=== PATIENT | female | born 1975 | race Caucasian/White ===

== ENCOUNTER 2016-12-18 14:13 | Outpatient (CLI) | payer OTHER ==
[2016-12-18 19:13] LABS: BASOPHILS % (AUTO) 0.2 %; EOSINOPHILS # (AUTO) 0.2 10^3/uL (0.0-0.7); EOSINOPHILS % (AUTO) 2.7 %; HCT - HEMATOCRIT 41.3 % (37.0-47.0); HGB - HEMOGLOBIN 13.6 g/dL (12.0-16.0); LYMPHOCYTES # (AUTO) 2.3 10^3/uL (1.5-3.5); MEAN CORPUSCULAR HEMOGLOBIN 27.7 pg (27.0-31.0); MEAN CORPUSCULAR VOLUME 84.1 fL (81.0-99.0); MEAN PLATELET VOLUME 7.3 fL (7.9-10.8); MONOCYTES # (AUTO) 0.6 10^3/uL (0.0-1.0); MONOCYTES % (AUTO) 7.3 %; NEUTROPHILS # (AUTO) 4.8 10^3/uL (1.5-6.6); NEUTROPHILS % (AUTO) 60.8 %; RED BLOOD COUNT 4.91 10^6/uL (4.20-5.40); RED CELL DISTRIBUTION WIDTH 13.4 % (12.0-15.0)
[2016-12-18 19:14] LABS: ALBUMIN/GLOBULIN RATIO 1.2 (1.0-2.2); BILIRUBIN,TOTAL 0.7 mg/dL (0.2-1.0); BUN - BLOOD UREA NITROGEN 11 mg/dL (6-20); CALCIUM 9.3 mg/dL (8.5-10.3); CARBON DIOXIDE - CO2 24 mmol/L (21-32); CHLORIDE 107 mmol/L (101-111); CREATININE 0.7 mg/dL (0.4-1.0); GFR - MDRD 93 (>89); GLUCOSE 131 mg/dL (70-100); LIPASE 32 U/L (22-51); POTASSIUM 3.8 mmol/L (3.5-5.0); SODIUM 138 mmol/L (135-145); TOTAL PROTEIN 7.4 g/dL (6.7-8.2)
== END 2016-12-18 14:14 | disposition home or self-care (01) ==
LOC: LAB.WCP 14:13
PROVIDERS: ATTEND Family Medicine
DX: R10.11 Right upper quadrant pain (principal)
CPT/HCPCS: 36415; 80053; 83690; 84703; 85025

== ENCOUNTER 2016-12-19 14:43 | Outpatient (CLI) | payer OTHER ==
--- NOTE | 2016-12-19 20:07 | Ultrasound Report ---
EXAM: ABDOMEN ULTRASOUND LIMITED, RUQ EXAM DATE: 12/19/2016 03:50 PM. CLINICAL HISTORY: Upper quadrant abdominal pain. History of vertical sleeve gastrectomy. COMPARISON: None. TECHNIQUE: Real-time scanning was performed with static images obtained. FINDINGS: Liver: Normal parenchymal echotexture. Main portal vein flow: Hepatopetal. Gallbladder: Contains multiple mobile stones. No wall thickening, pericholecystic free fluid, or sono graphic Hickman's sign. Biliary System: CBD measures 5 mm. No intrahepatic or extrahepatic ductal dilatation. Right Kidney: 11.0 cm in length. Normal parenchymal echotexture. No visualized shadowing stones or hy dronephrosis. IMPRESSION: Cholelithiasis without sonographic evidence of acute cholecystitis. [facility] Referring Provider Line: [phone] SITE ID: [id number]
== END 2016-12-19 14:44 | disposition home or self-care (01) ==
LOC: DI 14:43
PROVIDERS: ATTEND Family Medicine
DX: K80.20 Calculus of gallbladder without cholecystitis without obstruction (principal)
CPT/HCPCS: 76705

== ENCOUNTER → 2017-01-02 | Outpatient (CLI) | payer OTHER | LOC: LAB.R 08:00 | PROVIDERS: ATTEND Surgery | DX: R88.8 Abnormal findings in other body fluids and substances (principal) | CPT/HCPCS: 82270; 83630; 87045; 87046; 87177; 87209; 87493 ==

== ENCOUNTER 2017-03-13 02:00 | Emergency (ER) | payer OTHER ==
--- NOTE | 2017-03-13 02:10 | ED Physician Documentation ---
PD HPI ABD PAIN - Stated complaint Stated Complaint: ABD PX - Chief complaint Chief Complaint: Abd Pain - History obtained from History obtained from: Patient - History of Present Illness Timing - onset: How many months ago (episodic x 6 months, but this episode started few hours ago) Timing - duration: Hours Timing - details: Abrupt onset, Waxing and waning Pain level max: 8 Pain level now: 7 Quality: Pain Location: RUQ, Epigastric Radiation: No: Chest, , Lower back, Left flank, Left shoulder, Right flank, Right shoulder, Upper back Improved by: No: Eating, Laying still, Vomiting, BM, Position, Meds Worsened by: No: Eating, Moving, Breathing, Position, Palpation Associated symptoms: No: Fever, Nausea, Vomiting Similar symptoms before: Diagnosis (biliary colic) Review of Systems Constitutional: denies: Fever Cardiac: reports: Reviewed and negative Respiratory: reports: Reviewed and negative GI: reports: Abdominal Pain. denies: Nausea, Vomiting : denies: Dysuria, Frequency PD PAST MEDICAL HISTORY - Past Medical History Cardiovascular: Murmur, Other Respiratory: Asthma Endocrine/Autoimmune: None GI: GERD, Other : Other HEENT: None, Other Psych: Depression, Anxiety, Bipolar disorder Musculoskeletal: Other Derm: Eczema, Other - Past Surgical History General: Colonoscopy, Other HEENT: Myringotomy (tubes) - Present Medications Home Medications: Ambulatory Orders Medication Instructions Recorded Confirmed Acyclovir 400 mg PO DAILY 02/01/17 03/13/17 Albuterol Sulf [Ventolin Hfa 1 - 2 puffs INH Q4HR PRN 02/01/17 03/13/17 Inhaler] Cholecalciferol (Vitamin D3) 2,000 unit PO DAILY 02/01/17 03/13/17 [Vitamin D] lamoTRIgine [Lamictal Xr] 50 mg PO DAILY 02/01/17 03/13/17 HYDROcod/ACETAM 5/325 [[place] 5/325] 1 - 2 ea PO Q6H PRN #15 tablet 03/13/17 traMADol [Ultram] 50 mg PO PRN PRN 03/13/17 03/13/17 - Allergies Allergies/Adverse Reactions: Allergies Allergy/AdvReac Type Severity Reaction Status Date / Time NSAIDS (Non-Steroidal AdvReac Unknown Verified 03/13/17 02:31 Anti-Inflamma sulfacetamide AdvReac Rash Verified 03/13/17 02:31 [From Sulfamide] PD ED PE NORMAL - Vitals Vital signs reviewed: Yes - General General: Alert and oriented X 3, No acute distress, Well developed/nourished - HEENT HEENT: Moist mucous membranes - Cardiac Cardiac: RRR, No murmur - Respiratory Respiratory: No respiratory distress, Clear bilaterally - Abdomen Abdomen: Soft, Non distended, Other (mild RUQ and epigastric tenderness without rebound or guarding) - Back Back: No CVA TTP - Derm Derm: Normal color, Warm and dry, No rash Results - Vitals Vitals: Vital Signs - 24 hr 03/13/17 03/13/17 02:05 05:45 Temperature 36.5 C Heart Rate 78 66 Respiratory 18 16 Rate Blood Pressure 129/72 122/102 H O2 Saturation 100 100 Oxygen O2 Source Room air - Labs Labs: Laboratory Tests 03/13/17 03/13/17 03/13/17 02:39 02:39 03:40 WBC 10.0 RBC 4.49 Hgb 12.6 Hct 37.0 MCV 82.3 MCH 28.0 MCHC 34.0 RDW 13.6 Plt Count 311 MPV 7.0 L Neut # 5.5 Lymph # 3.2 [place] # 0.9 Eos # 0.3 Baso # 0.1 Absolute Nucleated RBC 0.01 Nucleated RBC % 0.1 Sodium 138 Potassium 3.7 Chloride 106 Carbon Dioxide 22 Anion Gap 10.0 BUN 13 Creatinine 0.7 Estimated GFR (MDRD) 93 Glucose 90 Calcium 9.0 Total Bilirubin 0.4 AST 21 ALT 16 Alkaline Phosphatase 65 Total Protein 7.6 Albumin 4.3 Globulin 3.3 Albumin/Globulin Ratio 1.3 Lipase 24 Urine Color YELLOW Urine Clarity CLEAR Urine pH 6.0 Ur Specific [place] 1.025 Urine Protein NEGATIVE Urine Glucose (UA) NEGATIVE Urine Ketones NEGATIVE Urine Occult Blood SMALL H Urine Nitrite NEGATIVE Urine Bilirubin NEGATIVE Urine Urobilinogen 0.2 (NORMAL) Ur Leukocyte Esterase NEGATIVE Urine RBC 0-5 Urine WBC 0-3 Ur Squamous Epith Cells MOD Squamous H Urine Bacteria Rare Ur Microscopic Review INDICATED Urine Culture Comments NOT INDICATED Urine HCG, Qual NEGATIVE - Rads (name of study) right upper quadrant US Radiology: Prelim report reviewed, See rad report PD MEDICAL DECISION MAKING - ED course Complexity details: reviewed results, re-evaluated patient, considered differential, d/w patient ED course: on reevaluation, after IV dilaudid and tests resulted, patient reports resolution of her pain. Departure - Departure Disposition: Home, Self Care Clinical Impression: Biliary colic Condition: Good Instructions: ED Gallstone W Biliary Colic Follow-Up: Zeferino Urbano MD [Provider Admit Priv/Credential] - (Call Wednesday to arrange for next available appointment) Prescriptions: HYDROcod/ACETAM 5/325 [[place] 5/325] 1 - 2 ea PO Q6H PRN #15 tablet PRN Reason: Pain Forms: Activity restrictions Discharge Date/Time: 03/13/17 05:48
[2017-03-13] MEDS ORDERED: HYDROmorphone 1 MG/ML SYRINGE IVP STA ×2 (02:30→04:24)
[2017-03-13 02:55] LABS: BASOPHILS # (AUTO) 0.1 10^3/uL (0.0-0.1); BASOPHILS % (AUTO) 0.7 %; EOSINOPHILS # (AUTO) 0.3 10^3/uL (0.0-0.7); EOSINOPHILS % (AUTO) 2.8 %; HGB - HEMOGLOBIN 12.6 g/dL (12.0-16.0); LYMPHOCYTES # (AUTO) 3.2 10^3/uL (1.5-3.5); MEAN CORPUSCULAR VOLUME 82.3 fL (81.0-99.0); MONOCYTES # (AUTO) 0.9 10^3/uL (0.0-1.0); MONOCYTES % (AUTO) 9.1 %; NEUTROPHILS # (AUTO) 5.5 10^3/uL (1.5-6.6); NEUTROPHILS % (AUTO) 55.4 %; NUCLEATED RED BLOOD CELLS AUTO 0.1 /100WBC; RED BLOOD COUNT 4.49 10^6/uL (4.20-5.40); RED CELL DISTRIBUTION WIDTH 13.6 % (12.0-15.0)
[2017-03-13 02:59] LABS: ALBUMIN/GLOBULIN RATIO 1.3 (1.0-2.2); BILIRUBIN,TOTAL 0.4 mg/dL (0.2-1.0); CREATININE 0.7 mg/dL (0.4-1.0); POTASSIUM 3.7 mmol/L (3.5-5.0); TOTAL PROTEIN 7.6 g/dL (6.7-8.2)
[2017-03-13 03:56] LABS: BILIRUBIN,URINE NEGATIVE (NEGATIVE)
--- NOTE | 2017-03-13 03:59 | Ultrasound Preliminary Report ---
Exam: US ABDOMEN LIMITED IMPRESSION: 1. Cholelithiasis without wall thickening or pericholecystic free fluid seen. Wheat Inspector does report a positive sonographic Hickman's sign however, increasing suspicion of early cholecystitis in the pro per clinical setting. 2. Fatty liver. [facility] SITE ID: [id number]
--- NOTE | 2017-03-13 04:04 | Ultrasound Report ---
EXAM: ABDOMEN ULTRASOUND LIMITED, RUQ EXAM DATE: 03/13/2017 03:50 AM. CLINICAL HISTORY: Abdominal pain. COMPARISON: 12/19/2016. TECHNIQUE: Real-time scanning was performed with static images obtained. FINDINGS: Liver: Echogenic without gross focal abnormality seen. Main portal vein flow: Hepatopetal. Gallbladder: Multiple small gallstones without wall thickening but with reported tenderness. No payam cholecystic free fluid seen. Biliary System: CBD measures 5 mm. No intrahepatic or extrahepatic ductal dilatation. Other: Visualized portions of the pancreas and right kidney are unremarkable. IMPRESSION: 1. Cholelithiasis without wall thickening or pericholecystic free fluid seen. Livestock Haulier does report a positive sonographic Hickman's sign however, increasing suspicion of early cholecystitis in the pro per clinical setting. 2. Fatty liver. [facility] Referring Provider Line: [phone] SITE ID: [id number]
[2017-03-13 04:05] LABS: HCG UR QUAL NEGATIVE; UA w/ MICROSCOPIC CHARGE YES
[2017-03-13 04:06] LABS: UR CULTURE IF IND NOT INDICATED; WBC,URINE 0-3 /HPF (0-5)
[2017-03-13] MEDS ORDERED: HYDROcod/ACET 5/325 Prepack 6 PO STA (05:09)
[2017-03-13 05:47] VITALS: BP 122/102
== END 2017-03-13 05:48 | disposition home or self-care (01) ==
LOC: ED 02:00
DX: K80.20 Calculus of gallbladder without cholecystitis without obstruction (principal); K76.0 Fatty (change of) liver, not elsewhere classified; K21.9 Gastro-esophageal reflux disease without esophagitis
CPT/HCPCS: 36415; 76705; 80053; 81001; 81025; 83690; 85025; 96374; 96375; 99283; J1170; 81003; 87086

== ENCOUNTER 2017-04-09 08:02 | Day surgery (SDC) | payer OTHER ==
[~2017-04-09 08:02] MED LIST: ACETAMINOPHEN 1,000 MG/100 ML 100 ML IV ONE; DEXAMETHASONE 4 MG/ML VIAL IVP ONE; GLYCOPYRROLATE 1 MG/5 ML VIAL IVP ONE; LIDOCAINE-MPF 2% 5 ML VIAL IM ONE; MIDAZOLAM 2 MG/2 ML VIAL IVP ONE; NEOSTIGMINE 1 MG/1 ML 10 ML MDV IVP ONE; ONDANSETRON 4 MG/2 ML VIAL IVP ONE; PROPOFOL 200 MG/20 ML VIAL IVP ONE; ROCURONIUM 50 MG/5 ML VIAL IVP ONE; ceFAZolin 2 GM/50 ML 2 GM/50 ML BAG IV ONE; fentaNYL 100 MCG/2 ML VIAL IVP ONE
[2017-04-09] MEDS ORDERED: LACTATED RINGERS 1,000 ML IV ONE ×2 (08:28→11:27)
[2017-04-09 08:43] LABS: HCG UR QUAL NEGATIVE
[2017-04-09] MEDS ORDERED: SCOPOLAMINE PATCH TOP ONE (08:58)
[2017-04-09] MEDS ORDERED: FAMOTIDINE 20 MG/50 ML 50 ML IV ONE (08:59)
[2017-04-09] MEDS ORDERED: BUPIVACAINE 0.5% PF 30 ML VIAL INFIL ONE ×2 (09:30→10:40)
[2017-04-09] MEDS ORDERED: MEPERIDINE 50 MG/ML SYRINGE ONE (11:10)
[2017-04-09] MEDS ORDERED: KETOROLAC 30 MG/ML VIAL ONE (11:28)
[2017-04-09] MEDS ORDERED: ONDANSETRON 4 MG/2 ML VIAL ONE (11:30)
[2017-04-09] MEDS ORDERED: HYDROcod/ACETAM 5/325 MG TABLET ONE ×2 (12:40→13:00)
[2017-04-09 13:58] VITALS: BP 114/68
== END 2017-04-09 08:03 | disposition home or self-care (01) ==
LOC: SDS 08:02
PROVIDERS: ATTEND Surgery
PROC: 0FT44ZZ Resection of Gallbladder, Percutaneous Endoscopic Approach (ICD-10-PCS; principal; 2017-04-09 09:00)
PROC: 0FB04ZX Excision of Liver, Percutaneous Endoscopic Approach, Diagnostic (ICD-10-PCS; 2017-04-09 09:00)
DX: K80.20 Calculus of gallbladder without cholecystitis without obstruction (principal); K76.0 Fatty (change of) liver, not elsewhere classified
CPT/HCPCS: 47379; 47562; 81025; 81599; 86800; 88304; 88307; 88313; A9270; J0131; J0690; J3490; J7120

== ENCOUNTER 2018-01-06 07:25 | Outpatient (CLI) | payer MEDICAID, OTHER ==
[2018-01-06 13:00] LABS: BASOPHILS % (AUTO) 0.4 %; EOSINOPHILS # (AUTO) 0.6 10^3/uL (0.0-0.7); EOSINOPHILS % (AUTO) 8.4 %; HGB - HEMOGLOBIN 12.9 g/dL (12.0-16.0); LYMPHOCYTES # (AUTO) 1.6 10^3/uL (1.5-3.5); LYMPHOCYTES % (AUTO) 24.3 %; MEAN CORPUSCULAR HEMOGLOBIN 28.8 pg (27.0-31.0); MEAN CORPUSCULAR HGB CONC 34.1 g/dL (32.0-36.0); MEAN CORPUSCULAR VOLUME 84.5 fL (81.0-99.0); MONOCYTES # (AUTO) 0.6 10^3/uL (0.0-1.0); MONOCYTES % (AUTO) 9.2 %; NEUTROPHILS # (AUTO) 3.8 10^3/uL (1.5-6.6); NEUTROPHILS % (AUTO) 57.7 %; PLT - PLATELET COUNT 344 10^3/uL (130-450); RED BLOOD COUNT 4.46 10^6/uL (4.20-5.40); RED CELL DISTRIBUTION WIDTH 13.1 % (12.0-15.0); WHITE BLOOD COUNT 6.6 x10^3/uL (4.8-10.8)
[2018-01-06 13:08] LABS: THYROID STIMULATING HORMONE 0.94 uIU/mL (0.34-5.60)
[2018-01-06 13:12] LABS: % IRON SATURATION 25 % (20-50); ALBUMIN 4.1 g/dL (3.2-5.5); ALBUMIN/GLOBULIN RATIO 1.6 (1.0-2.2); ALKALINE PHOSPHATASE 69 IU/L (42-121); ALT ALANINE AMINOTRANSFERASE 13 IU/L (10-60); AST ASPARTATE AMINOTRANSFERASE 15 IU/L (10-42); BILIRUBIN,TOTAL 0.7 mg/dL (0.2-1.0); BUN - BLOOD UREA NITROGEN 12 mg/dL (6-20); CARBON DIOXIDE - CO2 24 mmol/L (21-32); CHLORIDE 103 mmol/L (101-111); CHOL/HDL RATIO 3.4 (<4.4); CHOLESTEROL 168 mg/dL; CREATININE 0.6 mg/dL (0.4-1.0); GFR - MDRD 111 (>89); GLUCOSE 81 mg/dL (70-100); HDL CHOLESTEROL 50 mg/dL; IRON 86 ug/dL (28-170); LDL CHOLESTEROL,CALCULATED 104 mg/dL; LDL/HDL RATIO 2.1 (<4.4); SODIUM 135 mmol/L (135-145); TOTAL IRON BINDING CAPACITY 339 ug/dL (250-450); TOTAL PROTEIN 6.6 g/dL (6.7-8.2); TRANSFERRIN 242 mg/dL (192-382); VLDL CHOLESTEROL 14 mg/dL
[2018-01-06 13:14] LABS: FERRITIN 48.3 ng/mL (11.0-306.8)
[2018-01-06 13:29] LABS: HB2 TOTAL 13.5 g/dL; HEMOGLOBIN A1C 0.48 g/dL; HEMOGLOBIN A1C % 5.4 % (4.6-6.2)
== END 2018-01-06 07:26 | disposition home or self-care (01) ==
LOC: LAB.WCP 07:25
PROVIDERS: ATTEND Family Medicine
DX: Z98.84 Bariatric surgery status (principal)
CPT/HCPCS: 36415; 80053; 80061; 82306; 82607; 82728; 83036; 83540; 83721; 84443; 84466; 85025

== ENCOUNTER 2018-06-20 08:00 | Outpatient (CLI) | payer MEDICAID ==
[2018-06-20 18:49] LABS: HGB - HEMOGLOBIN 12.8 g/dL (12.0-16.0); MEAN CORPUSCULAR HEMOGLOBIN 27.4 pg (27.0-31.0); MEAN CORPUSCULAR HGB CONC 32.8 g/dL (32.0-36.0); MEAN CORPUSCULAR VOLUME 83.7 fL (81.0-99.0); MEAN PLATELET VOLUME 7.2 fL (7.9-10.8); RED BLOOD COUNT 4.66 10^6/uL (4.20-5.40); WHITE BLOOD COUNT 10.4 x10^3/uL (4.8-10.8)
[2018-06-20 19:16] LABS: ALBUMIN 4.2 g/dL (3.2-5.5); ALBUMIN/GLOBULIN RATIO 1.3 (1.0-2.2); ALKALINE PHOSPHATASE 74 IU/L (42-121); ALT ALANINE AMINOTRANSFERASE 14 IU/L (10-60); AST ASPARTATE AMINOTRANSFERASE 20 IU/L (10-42); BILIRUBIN,TOTAL 0.4 mg/dL (0.2-1.0); BUN - BLOOD UREA NITROGEN 17 mg/dL (6-20); CALCIUM 8.9 mg/dL (8.5-10.3); CARBON DIOXIDE - CO2 21 mmol/L (21-32); CHLORIDE 107 mmol/L (101-111); CREATININE 0.7 mg/dL (0.4-1.0); GFR - MDRD 93 (>89); GLUCOSE 132 mg/dL (70-100); SODIUM 137 mmol/L (135-145); TOTAL PROTEIN 7.5 g/dL (6.7-8.2); URIC ACID 5.8 mg/dL (2.6-7.2)
[2018-06-20 19:24] LABS: RHEUMATOID FACTOR NEGATIVE (Negative)
[2018-06-20 19:42] LABS: CRP - C-REACTIVE PROTEIN < 1.0 mg/dL (0-1.0)
[2018-06-22 13:26] LABS: ANA SCREEN NEGATIVE (NEGATIVE)
== END 2018-06-20 23:59 | disposition home or self-care (01) ==
LOC: LAB.WCP 08:00
PROVIDERS: ATTEND Family Medicine
DX: M25.50 Pain in unspecified joint (principal)
CPT/HCPCS: 36415; 80053; 84550; 85027; 85651; 86038; 86140; 86200; 86430

== ENCOUNTER 2020-07-29 07:00 | Outpatient (CLI) | payer MEDICAID ==
--- NOTE | 2020-07-29 13:22 | XRAY Report ---
PROCEDURE: Knee 3 View RT INDICATIONS: R KNEE PX TECHNIQUE: 3 views of the right knee(s) were acquired. COMPARISON: None. FINDINGS: Bones: No fractures or dislocations. No suspicious bony lesions. There is mild to moderate medial c ompartment joint space narrowing on the frontal view. Soft tissues: No joint effusion. No suspiciou s soft tissue calcifications. IMPRESSION: Frontal weightbearing view shows mild to moderate medial compartment joint space narrowi ng consistent with degenerative osteoarthritis. No effusion or loose body found. No recent trauma vilma pected. Reviewed by: Girma Pride MD on 07/29/2020 1:20 PM PDT Approved by: Girma Pride MD on 07/29/2020 1:20 PM PDT Station ID: [id number]
== END 2020-07-29 23:59 | disposition home or self-care (01) ==
LOC: DI.N 07:00
PROVIDERS: ATTEND Nurse Practitioner
DX: M17.11 Unilateral primary osteoarthritis, right knee (principal)